=== PATIENT | female | born 1945 | race Caucasian/White ===

== ENCOUNTER → 2018-03-26 12:45 | Outpatient (BNVA) | payer OTHER, SELFPAY | PROVIDERS: PCP Family Medicine; Visit Provider Nurse Practitioner Gerontology | DX: R32 Unspecified urinary incontinence (principal); E11.8 Type 2 diabetes mellitus with unspecified complications; I10 Essential (primary) hypertension | CPT/HCPCS: 81003; 99204; 99215 ==

== ENCOUNTER 2018-05-13 11:59 | Outpatient (REF) | payer OTHER, SELFPAY | END 2018-05-13 12:19 | LOC: LBN 11:59 | PROVIDERS: PCP Family Medicine; Visit Provider Family Medicine | DX: N39.0 Urinary tract infection, site not specified (principal) | CPT/HCPCS: 87086 ==

== ENCOUNTER 2018-05-20 22:35 | Emergency (ER) | payer OTHER, SELFPAY ==
[2018-05-20 22:45] VITALS: BP 173/93; PULSE 114; RESP 18; TEMP 37.1; O2SAT 96
--- NOTE | 2018-05-20 22:46 | ED.GENADUL_ITS ---
Discharge Plan Disposition Patient Disposition: HOME Condition: Good Discharge Details Chief Complaint: Urinary Clinical Impression: Acute UTI Reason For Visit: fernando Primary Care Provider: Domenico Paulson ED Provider: Fly Reyna Home Meds and New Rx's Prescriptions: New ciprofloxacin HCl [Cipro] 250 mg tablet 250 mg PO BID 10 Days Qty: 20 RF: 0 No Action rosuvastatin 40 mg tablet 40 mg PO DAILY RF: 0 tramadol 50 mg tablet 50 mg PO HS MDD 50 mg Qty: 28 RF: 0 ciprofloxacin HCl 250 mg tablet 250 mg PO BID Qty: 6 RF: 0 clopidogrel [Plavix] 75 MG tablet 75 mg PO DAILY RF: 0 glimepiride 4 MG tablet 4 mg PO DAILY RF: 0 blood-glucose meter [FreeStyle Lite Meter] 1 EACH kit 1 ea Miscellaneous DAILY Qty: 1 RF: 0 lancets [OneTouch UltraSoft Lancets] 1 EACH misc 1 ea Miscellaneous As directed Qty: 100 RF: 3 ONETOUCH ULTRA TEST STRIPS 1 EACH strip 1 ea Miscellaneous As directed Qty: 100 RF: 3 blood-glucose meter [OneTouch Ultra2] 1 EACH kit 1 ea Miscellaneous DAILY Qty: 1 RF: 0 pioglitazone 15 mg tablet 15 mg PO DAILY Qty: 90 RF: 3 Discharge Instructions Instructions: Urinary Tract Infection in Women (ED) Additional Instructions: Please take antibiotics as directed. If you notice any pain in your joints or tendons more so than normal please stop taking the antibiotics and did not perform any significant vigorous activity. Please follow-up with your urologist as soon as possible for evaluation of your chronic incontinence. if you notice any worsening of your symptoms, or any new symptoms such as vomiting, diarrhea, fever, chills, shortness of breath, chest pain, numbness, weakness, or fainting , please return immediately to the emergency department for reevaluation. Please follow up with your primary care provider as soon as possible for reassessment and reevaluation. As always, it was a pleasure participating in your medical care today. Referrals: Domenico Paulson DO [Primary Care Provider] - Discharge Data Discharge Date/Time-TO BE ENTERED AT DEPARTURE: 05/20/18 23:54 Medical Decision Making This is a very pleasant 73-year-old female who presents for evaluation of urinary tract infection symptoms. Patient states that she recently was diagnosed and treated for urinary tract infection, she took Cipro 250 mg twice d aily for 3 days. This significantly improved her symptoms however she was only symptom-free to 1-2 days after completion of the antibiotic. Over the last 24- 48 hours the patient has noticed a return of her urinary frequency, dysuria and pressure. She denies any abdominal pain, flank pain, fever or chills. She denies any vomiting or diarrhea. She states that her symptoms are consistent with her previous urinary tract infections. Physical exam is reassuring with no flank or CVA tenderness, no abdominal tenderness. We will evaluate for potential UTI, get the patient first dose of antibiotic here, I do feel that she would benefit from a repeat course of antibiotics. This is the antibiotic that the patient had been doing well with and she is tolerated this well I feel that this is very reasonable to continue however I do not think that the initial 3 days of antibiotics is appropriate due to her other risk factors of urinary incontinence, diabetes, and age. I feel that she would benefit from a prolonged course of symptoms 10 days of antibiotics for UTI. Patient did have mild tachycardia when she initially arrived with a heart rate of 114. We did get basic laboratory workup and rehydrate, and with this her heart rate came down to the 80s prior to discharge. Her laboratory workup demonstrated no white count, bandemia or left shift. Renal function is normal. With reassuring vital signs, a benign laboratory workup aside for a urinalysis indicative of a urinary tract infection I feel that she is safe for discharge home with close follow-up with her PCP. She demonstrates no signs or symptoms clinically consistent with pyelonephritis or an acute abdominal pathology at this time. Patient will be discharged home with Cipro, close follow-up instructions. I have extensively reviewed the treatment plan and discharge instructions with the patient and their family. I have addressed all patient concerns at this time. The patient and family was made aware of what symptoms to monitor for that would warrant a return to the emergency department. Discussed the plan with the patient and family, they demonstrate verbal understanding and agreement with our assessment and plan at this time. HPI General Date/Time Provider Initiated Documentation: 05/20/18 22:41 . HPI Narrative: This is a pleasant 73-year-old female with a past medical history of a CVA, traumatic brain injury, chronic urinary incontinence, type 2 diabetes, who presents today for evaluation of dysuria and increase in urinary frequency. Patient has a history of urinary tract infections. She was recently seen by her primary care provider on 05/13/18, where she had mild leukocyte esterase on her urinalysis. She was given 3 days of Cipro to 250 mg twice daily. Cultures showed gram-negative E. coli and other mixed pb, no sensitivities. The patient completed her 3-day course and felt slightly better afterwards, however over the last 1-2 days she had a notable return of her symptoms with frequency and burning and dysuria. She denies any flank pain, or systemic symptoms of fevers, chills, abdominal pain, vomiting or diarrhea. She states that her symptoms feel consistent with her previous UTIs. She denies any history of recent kidney stones. She does have follow-up with urology for her incontinence in the upcoming weeks. Patient denies any recent surgeries. She denies any IV or illicit drug use. She denies any pertinent family history Related Data Home Medications Medication Instructions Recorded Confirmed clopidogrel [Plavix] 75 mg PO DAILY tab-cap 12/06/17 05/20/18 glimepiride 4 mg PO DAILY tab-cap 12/06/17 05/20/18 blood-glucose meter [Freestyle #1 kit 01/16/18 05/13/18 Lite Meter] lancets [Onetouch Lancets] #100 ea 01/16/18 05/13/18 blood-glucose meter [Onetouch #1 kit 01/17/18 05/13/18 Ultra2] rosuvastatin 40 mg tablet 40 mg PO DAILY 02/11/18 05/20/18 pioglitazone 15 mg tablet 15 mg PO DAILY #90 tab-cap 03/24/18 05/20/18 ciprofloxacin 250 mg tablet 250 mg PO BID #6 tab 05/13/18 05/13/18 tramadol 50 mg tablet 50 mg PO HS #28 tab MDD 50 mg 05/13/18 05/20/18 ciprofloxacin HCl [Cipro] 250 mg PO BID 10 Days #20 tab 05/20/18 Previous Rx's Medication Instructions Recorded blood-glucose meter [Freestyle #1 kit 01/16/18 Lite Meter] lancets [Onetouch Lancets] #100 ea 01/16/18 blood-glucose meter [Onetouch #1 kit 01/17/18 Ultra2] pioglitazone 15 mg tablet 15 mg PO DAILY #90 tab-cap 03/24/18 ciprofloxacin 250 mg tablet 250 mg PO BID #6 tab 05/13/18 tramadol 50 mg tablet 50 mg PO HS #28 tab MDD 50 mg 05/13/18 ciprofloxacin HCl [Cipro] 250 mg PO BID 10 Days #20 tab 05/20/18 Allergies Allergy/AdvReac Type Severity Reaction Status Date / Time Penicillins Allergy Unknown unknown Verified 05/20/18 23:19 metformin AdvReac Unknown Gas Verified 05/20/18 23:19 sitagliptin phosphate AdvReac Unknown Knee Pain Unverified 05/20/18 23:19 [From Francois] Review of Systems Review of Systems All systems reviewed & are unremarkable except as noted in HPI and below PFSH Social History adopted: No housing: house current occupational status: retired Smoking/Tobacco Use Status: Current every day alcohol intake: former substance use type: does not use seatbelt use: always drive intox or ride w/ intox driver operator: No working smoke detector in home: Yes fire extinguisher in home: Yes carbon monox detector in home: No Exam Narrative Exam Narrative: 1.Const: Well-nourished, Well-developed, appearing stated age 2.Eyes: PERRL, no conjunctival injection, and symmetrical lids. 3.ENT: Atraumatic external nose and ears. Moist MM. Neck: Symmetric, trachea midline, No thyromegaly. 4.CVS: +S1/S2, No murmurs or gallops. Peripheral pulses 2+ and equal in all extremities. Brisk capillary refill in all extremities. 5.RESP: Unlabored respiratory effort. Clear to auscultation bilaterally. No wheezes rales or rhonchi 6.GI: Soft, Nontender/Nondistended, No hepatosplenomegaly. No guarding or rebound. No flank or CVA tenderness. 7.MSK: Normocephalic/Atraumatic, Extremities w/o deformity or ttp No cyanosis or clubbing, Normal movement of all extremities 8.Skin: Warm, Dry. No rashes or lesions. 9.Neuro: ophthalmology assistant II-XII grossly intact. Sensation grossly intact, no focal neurologic deficits. 10.Psych: (AAO) x3. Appropriate mood and affect
[2018-05-20 22:55] LABS: Bilirubin Negative (Negative); Blood Trace-intact (Negative); Clarity Sl Cloudy; Glucose Negative (Negative); Ketones Negative (Negative); Leukocyte Esterase Moderate (Negative); Nitrite Negative (Negative); Specific Gravity >= 1.030 (1.005-1.025); Urobilinogen 0.2 EU/dL (Up TO 0.2); pH 5.5 (5-8)
[2018-05-20 23:04] LABS: Bacteria Moderate HPF (Negative); C & S Indicated? No/Sq. Contamination; Casts Negative LPF (Negative); Crystals Negative HPF (Negative); Epithelial Cells Moderate HPF (Negative); Mucus Moderate (Negative); Other Cells Few Transitional (Negative); WBC 20-50 HPF (0-5)
[2018-05-20 23:17] LABS: Abs Immature Grans 0.01 k/cumm (0.0-0.09); Absolute Basophil Count 0.04 k/cumm (0.0-0.2); Absolute Eosinophil Count 0.23 k/cumm (0.0-0.7); Absolute Lymphocyte Count 2.39 k/cumm (1.2-3.4); Absolute Neutrophil Count 3.94 k/cumm (1.2-6.7); Basophils % 0.5; Eosinophils % 3.1; HCT 40.9 % (36.0-46.0); HGB 13.7 g/dL (12.0-15.5); Immature Grans % 0.1; Lymphocytes % 32.7; Mean Corp. HGB Concentration 33.5 g/dL (32.0-36.0); Mean Corpuscular Hemoglobin 29.9 pg (27.0-33.0); Mean Corpuscular Volume 89.3 fL (80-95); Mean Platelet Volume 9.1 fL (8.0-11.0); Monocytes % 9.6; Platelet Count 255 x1000/uL (130-400); RBC 4.58 m/cumm (4.00-5.20); RBC Distribution Width 14.5 % (11.7-14.6); White Blood Cell Count 7.31 k/cumm (4.4-10.8)
[2018-05-20] MEDS: Normal Saline 1,000 ML 1000 ML IV (23:21)
[2018-05-20] MEDS: Ciprofloxacin 250 MG TAB PO ×2 (23:21→23:22)
[2018-05-20] MEDS: Phenazopyridine 100 MG TAB PO (23:22)
[2018-05-20 23:33] LABS: ALT 21 U/L (12-78); AST 15 U/L (15-37); Albumin 3.7 g/dL (3.4-5.0); Alkaline Phosphatase 89 U/L (46-116); Anion Gap 5.2 mmol/L (3-11); BUN 14 mg/dL (7-18); Bilirubin, Total 0.3 mg/dL (0.2-1.0); CO2 28.8 mmol/L (21.0-32.0); CREATININE 0.71 mg/dL (0.55-1.02); Calcium 9.6 mg/dL (8.5-10.1); Chloride 106 mmol/L (98-107); Glucose 155 mg/dL (70-100); Potassium 3.9 mmol/L (3.5-5.1); Sodium 140 mmol/L (136-145); Total Protein 7.1 g/dL (6.4-8.2)
[2018-05-20 23:45] VITALS: BP 180/88; PULSE 100; RESP 19; TEMP 37.1; O2SAT 99
== END 2018-05-20 23:54 | disposition home or self-care (01) ==
PROVIDERS: Emergency Provider Student in an Organized Health Care Education/Training Program; PCP Family Medicine
DX: N39.0 Urinary tract infection, site not specified (principal); E11.9 Type 2 diabetes mellitus without complications
CPT/HCPCS: 80053; 99283; 81003; 81015; 85025

== ENCOUNTER → 2018-07-18 12:50 | Outpatient (BNVA) | payer OTHER, SELFPAY | PROVIDERS: PCP Family Medicine; Visit Provider Urology | DX: R32 Unspecified urinary incontinence (principal) | CPT/HCPCS: 81003; 99213 ==

== ENCOUNTER 2018-10-14 12:08 | Outpatient (REF) | payer OTHER, SELFPAY | END 2018-10-14 12:28 | LOC: LBN 12:08 | PROVIDERS: PCP Family Medicine; Visit Provider Family Medicine | DX: N39.0 Urinary tract infection, site not specified (principal) | CPT/HCPCS: 87077; 87086; 87186 ==

== ENCOUNTER 2018-11-06 12:19 | Outpatient (CLI) | payer OTHER, SELFPAY ==
[2018-11-06 13:42] LABS: ALT 22 U/L (12-78); AST 16 U/L (15-37); Albumin 3.9 g/dL (3.4-5.0); Alkaline Phosphatase 90 U/L (46-116); Bilirubin, Direct 0.14 mg/dL (0.00-0.20); Bilirubin, Total 0.4 mg/dL (0.2-1.0); C-Reactive Protein 0.15 mg/dL (0.0-0.3); Lipase 143 U/L (73-393); Total Protein 6.6 g/dL (6.4-8.2)
[2018-11-07 09:48] LABS: Cyclic Citrullinated Peptide <2.5 U/mL (<5.0)
[2018-11-07 09:55] LABS: Rheumatoid Factor <8 IU/mL (<12.5)
[2018-11-07 12:14] LABS: Lyme Ab w Rflx to Lyme Confirm Negative
[2018-11-07 13:53] LABS: ANA Interpretation Negative (NEGAT)
[2018-11-07 21:49] LABS: Anaplasma phagocytophilum Negative (Negative); B. miyamotoi PCR Negative (Negative); Babesia divergens/MO-1 Negative (Negative); Babesia duncani Negative (Negative); Babesia microti Negative (Negative); Ehrlichia chaffeensis Negative (Negative); Ehrlichia ewingii/canis Negative (Negative); Ehrlichia muris eauclairensis Negative (Negative)
== END 2018-11-06 12:39 ==
PROVIDERS: PCP Family Medicine; Visit Provider Family Medicine
DX: M13.0 Polyarthritis, unspecified (principal); K21.0 Gastro-esophageal reflux disease with esophagitis
CPT/HCPCS: 36415; 80076; 83690; 86200; 86038; 86140; 86431; 86618; 87798

== ENCOUNTER 2018-11-17 18:50 | Outpatient (REF) | payer OTHER, SELFPAY | END 2018-11-17 19:10 | LOC: LBN 18:50 | PROVIDERS: PCP Family Medicine; Visit Provider Nurse Practitioner | DX: R30.0 Dysuria (principal) | CPT/HCPCS: 87077; 87086; 87186 ==

== ENCOUNTER 2018-12-09 11:38 | Outpatient (REF) | payer OTHER, SELFPAY | END 2018-12-09 11:58 | LOC: LBN 11:38 | PROVIDERS: PCP Family Medicine; Visit Provider Family Medicine | DX: N39.0 Urinary tract infection, site not specified (principal) | CPT/HCPCS: 87077; 87086; 87186 ==

== ENCOUNTER → 2019-01-16 10:16 | Outpatient (BNVA) | payer OTHER, SELFPAY | PROVIDERS: PCP Family Medicine; Visit Provider Urology | DX: R32 Unspecified urinary incontinence (principal); Z87.440 Personal history of urinary (tract) infections | CPT/HCPCS: 99213 ==

== ENCOUNTER 2019-02-18 01:05 | Outpatient (CLI) | payer OTHER, SELFPAY ==
--- NOTE | 2019-02-18 10:14 | DI.US_ITS ---
EXAM: US RENAL CLINICAL HISTORY: ? stone, diverticulum, hydro, N39.0 UTI. TECHNIQUE: Ultrasound performed using standard protocol. FINDINGS: The right kidney measures 10.9 x 3.6 x 5.4 cm. There is no evidence of nephrolithiasis, a cyst, mass or hydronephrosis. The left kidney measures 10.1 x 4.2 x 4.3 cm. There is no evidence of nephrolithi asis, a cyst, mass or hydronephrosis. The prevoid bladder contains 41 cc, the postvoid bladder conta ins 0. Both ureteral jets were visualized. IMPRESSION: Normal renal ultrasound.
== END 2019-02-18 01:25 ==
PROVIDERS: PCP Family Medicine; Visit Provider Urology
DX: N39.0 Urinary tract infection, site not specified (principal)
CPT/HCPCS: 76770

== ENCOUNTER → 2019-02-20 13:58 | Outpatient (BNVA) | payer OTHER, SELFPAY | PROVIDERS: PCP Family Medicine; Referring Provider Family Medicine; Visit Provider Urology | DX: R32 Unspecified urinary incontinence (principal) | CPT/HCPCS: 99213 ==

== ENCOUNTER 2019-03-24 16:52 | Outpatient (CLI) | payer OTHER, SELFPAY ==
--- NOTE | 2019-03-24 11:03 | DI.RAD_ITS ---
EXAM: XR CHEST 2V PA LATERAL INDICATION: Productive cough, possible crackles on exam, R05. COMPARISON: No exams were available for comparison TECHNIQUE: 2D digital imaging was performed. FINDINGS: The heart size and pulmonary vasculature are within normal limits. The lungs are clear. No effusion o r pneumothorax is identified. Age-appropriate degenerative changes are seen in the spine. IMPRESSION: No acute pulmonary process.
== END 2019-03-24 17:12 ==
PROVIDERS: PCP Family Medicine; Visit Provider Family Medicine
DX: R05 Cough (principal); R09.89 Other specified symptoms and signs involving the circulatory and respiratory systems
CPT/HCPCS: 71046

== ENCOUNTER → 2019-04-14 14:11 | Outpatient (BNVA) | payer OTHER, SELFPAY | PROVIDERS: PCP Family Medicine; Referring Provider Family Medicine; Visit Provider Urology | DX: N32.81 Overactive bladder (principal) | CPT/HCPCS: 99213 ==

== ENCOUNTER 2019-10-29 15:44 | Outpatient (REF) | payer OTHER, SELFPAY ==
[2019-10-29 18:47] LABS: Abs Immature Grans 0.01 k/cumm (0.0-0.09); Absolute Basophil Count 0.02 k/cumm (0.0-0.2); Absolute Eosinophil Count 0.12 k/cumm (0.0-0.7); Absolute Lymphocyte Count 1.82 k/cumm (1.2-3.4); Absolute Monocyte Count 0.69 k/cumm (0.11-0.7); Absolute Neutrophil Count 5.03 k/cumm (1.2-6.7); Basophils % 0.3; Eosinophils % 1.6; HCT 41.3 % (36.0-46.0); HGB 13.6 g/dL (12.0-15.5); Immature Grans % 0.1 %; Lymphocytes % 23.7; Mean Corp. HGB Concentration 32.9 g/dL (32.0-36.0); Mean Corpuscular Hemoglobin 30.2 pg (27.0-33.0); Mean Corpuscular Volume 91.6 fL (80-95); Mean Platelet Volume 9.5 fL (8.0-11.0); Neutrophils % 65.3; Platelet Count 267 x1000/uL (130-400); RBC 4.51 m/cumm (4.00-5.20); RBC Distribution Width 14.4 % (11.7-14.6); White Blood Cell Count 7.69 k/cumm (4.4-10.8)
[2019-10-29 19:01] LABS: Anion Gap 3.8 mmol/L (3-11); BUN 20 mg/dL (7-18); CO2 29.2 mmol/L (21.0-32.0); CREATININE 0.85 mg/dL (0.55-1.02); Calcium 9.8 mg/dL (8.5-10.1); Chloride 105 mmol/L (98-107); Glucose 128 mg/dL (74-106); Potassium 4.2 mmol/L (3.5-5.1); Sodium 138 mmol/L (136-145); TSH (W/Ref FT4) 0.54 uIU/mL (0.36-3.74)
== END 2019-10-29 16:04 ==
LOC: LBO 15:44
PROVIDERS: PCP Family Medicine; Visit Provider Family Medicine
DX: R53.83 Other fatigue (principal)
CPT/HCPCS: 80048; 84443; 85025

== ENCOUNTER 2020-03-02 00:55 | Outpatient (CLI) | payer OTHER, SELFPAY ==
--- NOTE | 2020-03-02 09:15 | DI.RAD_ITS ---
EXAM: XR LUMBAR SPINE COMPLETE CLINICAL HISTORY: New mid-low back pain, r/o compression frx M54.5 LOW BACK PAIN TECHNIQUE: COMPARISON: No exams were available for comparison FINDINGS: Six views were obtained. There is a slight left convex lumbar scoliosis. There are multiple vascula r clips in the right upper quadrant consistent with prior cholecystectomy. There are degenerative ch anges of both SI joints. No compression fracture identified. There are very prominent hypertrophic endplate and to a lesser d egree facet osteophytes throughout the lumbar region. There is no evidence of spondylolysis or spond ylolisthesis. There is marked disc space narrowing at L5-S1. This is presumably on a degenerative b asis. Otherwise intervertebral disc spaces appear fairly well maintained throughout the lumbar regio n. IMPRESSION: Severe hypertrophic degenerative changes, there is also evidence of disc degeneration at L5-S1. No compression fracture seen. RADIATION DOSE DELIVERED: Total DLP
== END 2020-03-02 01:15 ==
PROVIDERS: PCP Family Medicine; Visit Provider Family Medicine
DX: M47.817 Spondylosis without myelopathy or radiculopathy, lumbosacral region (principal); M41.86 Other forms of scoliosis, lumbar region
CPT/HCPCS: 72110

== ENCOUNTER 2020-09-07 02:40 | Outpatient (CLI) | payer OTHER, SELFPAY ==
[2020-09-07 09:30] VITALS: BP 118/66; PULSE 97; RESP 20; TEMP 36.3; O2SAT 93
[2020-09-07] MEDS: Normal Saline Flush 10 ML SYR IVP (10:33)
[2020-09-07] MEDS: Normal Saline 500 ML 30 ML IV (10:33)
[2020-09-07 10:37] VITALS: BP 121/62; PULSE 90; RESP 20; TEMP 36.7; O2SAT 94
[2020-09-07 10:58] VITALS: BP 154/69; PULSE 90; RESP 20; TEMP 36.2; O2SAT 94
[2020-09-07 11:31] VITALS: BP 147/71; PULSE 80; RESP 20; TEMP 36.4; O2SAT 92
[2020-09-07 11:55] VITALS: BP 166/70; PULSE 80; RESP 22; TEMP 36.8; O2SAT 92
== END 2020-09-07 02:41 | disposition home or self-care (01) ==
LOC: INF 02:40
PROVIDERS: PCP Family Medicine; Visit Provider Family Medicine
DX: U07.1 COVID-19 (principal)
CPT/HCPCS: 96365

== ENCOUNTER 2020-09-09 15:07 | Outpatient (CLI) | payer OTHER, SELFPAY ==
--- NOTE | 2020-09-09 14:45 | DI.RAD_ITS ---
EXAM: XR CHEST 2V PA LATERAL CLINICAL HISTORY: r/o acute process R05 COUGH, R06.02 SOB U07.1 COVID 19 TECHNIQUE: 2D digital imaging was performed. COMPARISON: CR XR CHEST 2V PA LATERAL from 03/24/2019 FINDINGS: MEDIASTINUM: Normal. HEART: Normal. PULMONARY VASCULATURE: Normal. LUNGS: Clear. PLEURAL SPACE: No pleural effusion or pneumothorax. BONE:Within normal limits for the patient's age. OTHER FINDINGS:Normal. IMPRESSION: No acute pulmonary findings. DATA REPOSITORY: RADIATION DOSE DELIVERED:
== END 2020-09-09 15:27 ==
PROVIDERS: PCP Family Medicine; Visit Provider Nurse Practitioner Adult Health
DX: R05 Cough (principal); R06.02 Shortness of breath; U07.1 COVID-19
CPT/HCPCS: 71046

== ENCOUNTER 2021-01-26 20:04 | Emergency (ER) | payer OTHER, SELFPAY ==
[2021-01-26 20:08] VITALS: BP 156/63; PULSE 90; RESP 18; TEMP 36.3; O2SAT 94
--- NOTE | 2021-01-26 20:20 | ED.GENADUL_ITS ---
Discharge Plan Disposition Patient Disposition: HOME Condition: Stable Discharge Details Clinical Impression: Paronychia of finger of right hand Primary Care Provider: Domenico Paulson ED Provider: Juliette Franklin Home Meds and New Rx's Prescriptions: New clindamycin HCl 150 mg capsule 450 mg PO Q6H 7 Days Qty: 84 RF: 0 Continued glimepiride 4 mg tablet 4 mg PO DAILY RF: 0 ascorbic acid (vitamin C) 500 mg capsule PO RF: 0 tramadol 50 mg tablet See Rx Instructions PO HS MDD 50 mg PRN (Reason: pain) Qty: 35 RF: 2 (DME) lancets [ViditTouch UltraSoft Lancets] 1 EACH misc 1 ea Miscellaneous As directed Qty: 100 RF: 3 ONETOUCH ULTRA TEST STRIPS 1 EACH strip 1 ea Miscellaneous As directed Qty: 100 RF: 3 (DME) blood-glucose meter [NearbyNowuch Ultra2 Meter] 1 EACH kit 1 ea Miscellaneous DAILY Qty: 1 RF: 0 clopidogrel [Plavix] 75 mg tablet 75 mg PO DAILY Qty: 90 RF: 3 pioglitazone 15 mg tablet 15 mg PO DAILY Qty: 90 RF: 3 rosuvastatin 40 mg tablet 40 mg PO DAILY Qty: 90 RF: 3 Discharge Instructions Instructions: Paronychia (ED) Additional Instructions: You may continue to apply antibiotic ointment topically up to 3 times daily. You may continue to soak in Epson salts. Take antibiotics as directed. Follow up with primary care provider in 3-5 days. Return to ED sooner if any w orsening or concerns. Increase oral fluids. Please take Tylenol or Ibuprofen with food every 4-6 hours as needed for pain and swelling. Referrals: Domenico Paulson DO [Primary Care Provider] - 3 days Discharge Data Discharge Date/Time-TO BE ENTERED AT DEPARTURE: 01/26/21 20:40 Medical Decision Making 75-year-old female presents to the ER chief complaint of right index finger infection. Patient noticed tenderness from a hangnail increase swelling and redness approximately 2 days ago. Patient reports she has been applying Neosporin topically and soaking finger and Epson salts. Patient states she has had this before and infection extended up into her forearm. Patient has a past medical history of type 2 diabetes, hypothyroidism, hyperlipidemia, hypertension, CVA. Findings are most consistent with paronychia. No area of fluctuance or drainable abscess at this time. Patient given clindamycin due to allergy to penicillin. HPI General Mode of arrival: ambulatory . Date/Time Provider Initiated Documentation: 01/26/21 20:05 . Limitations to Documentation: no limitations . Information obtained by: patient and RN notes reviewed . HPI Narrative: 75-year-old female presents to the ER chief complaint of right index finger infection. Patient noticed tenderness from a hangnail increase swelling and redness approximately 2 days ago. Patient reports she has been applying Neosporin topically and soaking finger and Epson salts. Patient states she has had this before and infection extended up into her forearm. Patient has a past medical history of type 2 diabetes, hypothyroidism, hyperlipidemia, hypertension, CVA. Related Data Home Medications Medication Instructions Recorded Confirmed lancets [OneTouch UltraSoft #100 ea 01/16/18 09/20/20 Lancets] blood-glucose meter [OneTouch #1 kit 01/17/18 09/20/20 Ultra2 Meter] ascorbic acid (vitamin C) 500 mg mg PO 02/24/19 09/20/20 capsule clopidogrel 75 mg tablet 75 mg PO DAILY #90 tab-cap 08/19/20 01/26/21 pioglitazone 15 mg tablet 15 mg PO DAILY #90 tab-cap 08/19/20 01/26/21 rosuvastatin 40 mg tablet 40 mg PO DAILY #90 tab 08/19/20 01/26/21 glimepiride 4 mg tablet 4 mg PO DAILY tab-cap 09/20/20 01/26/21 tramadol 50 mg tablet See Rx Instructions PO HS PRN #35 11/25/20 01/26/21 tab MDD 50 mg clindamycin HCl 450 mg PO Q6H 7 Days #84 cap 01/26/21 Previous Rx's Medication Instructions Recorded lancets [OneTouch UltraSoft #100 ea 01/16/18 Lancets] blood-glucose meter [OneTouch #1 kit 01/17/18 Ultra2 Meter] clopidogrel 75 mg tablet 75 mg PO DAILY #90 tab-cap 08/19/20 pioglitazone 15 mg tablet 15 mg PO DAILY #90 tab-cap 08/19/20 rosuvastatin 40 mg tablet 40 mg PO DAILY #90 tab 08/19/20 tramadol 50 mg tablet See Rx Instructions PO HS PRN #35 11/25/20 tab MDD 50 mg clindamycin HCl 450 mg PO Q6H 7 Days #84 cap 01/26/21 Allergies Allergy/AdvReac Type Severity Reaction Status Date / Time Penicillins Allergy Unknown unknown Verified 01/26/21 20:14 metformin AdvReac Unknown Gas Verified 01/26/21 20:14 sitagliptin phosphate AdvReac Unknown Knee Pain Verified 01/26/21 20:14 [From Francois] General Stated Complaint: RashLesion GRAY: 4 Review of Systems All systems reviewed & are unremarkable except as noted in HPI and below Musculoskeletal Musculoskeletal: Reports as per HPI Integumentary/Breasts Skin/Breast: Reports erythema (Right index finger) [facility] Medical History 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) Cerebrovascular accident (CVA) (11/22/17) 2010 Dysphagia (11/22/17) Eczema (11/22/17) Enlarged lymph node (11/22/17) Essential hypertension (11/22/17) Fatigue (11/22/17) Gait disturbance (11/22/17) Generalized osteoarthritis of multiple sites (11/22/17) Hyperlipidemia (11/22/17) Hypothyroidism (11/22/17) Insomnia (11/22/17) Low back pain Lumbar radiculopathy (11/22/17) Periodic limb movement disorder (11/22/17) Psychomotor deficit (11/22/17) Recurrent UTI (urinary tract infection) Retinal detachment (11/22/17) Retinal edema (11/22/17) Right knee pain (11/22/17) Stenosis of carotid artery (11/22/17) Syncope (11/22/17) Type 2 diabetes mellitus with complication (11/22/17) Urinary incontinence (11/22/17) Vaginal candidiasis (11/22/17) Seen by [facility] in February -- unclear findings .. will FU with them - PT/Pessary TBD Pain and itching are major symptoms -- more of a fungal/yeast infectn than UTI - Trial anti-yeast oitnment - Trial Zinc paste Surgical History Abdominal hysterectomy Arthrodesis Cholecystectomy Family History Mother , thyrpoid ca at age 92. Osteoporosis Father , CHF at age 89. Congestive heart failure Brother Pacemaker Maternal Grandmother Essential hypertension Social History Smoking/Tobacco Use Status: Current-Occasional Tobacco Type: cigarettes Quit status: considering quitting Smoking risk assessment performed?: Yes Alcohol Intake: former Drug use: Never Substance use type: does not use Adopted: No Household members: family Housing: house Number of Children: 3 Communication Needs: None Do you need help understanding health information?: Rarely Pets and animals: Yes Pets and animals: dog(s) Sexually active: No Current gender identity: female What is your relationship status?: How often do you talk on the phone with friends or family?: twice per week How often do you get together with friends or relatives?: decline to answer How often do you attend hindu or adventism services?: decline to answer Do you belong to any clubs or organized social groups?: decline to answer Panel score (0-1 are the most socially isolated patients): 0 Duration: < 15 minutes/day Frequency: 3-4 times per week Samantha/Episcopalian: Other Special samantha needs: Yes Seatbelt use: always Helmet use: No Drive intox or ride w/intox chair car driver: No Working smoke detector in home: Yes Fire extinguisher in home: Yes Carbon monox detector in home: No Do you feel safe at home: Yes Do you feel safe in your relationship?: Yes Exam Extrem Right upper extremity: hand Details: normal capillary refill, neurosensory exam normal, tenderness Location: of the 2nd digit Location: at the distal phalanx, warmth and swelling Hand/finger images: 1. Erythema, tenderness, swelling. No area of fluctuance or abscess noted. Course Vital Signs Vital signs: Vital Signs Temperature 36.3 C L 01/26/21 20:08 Pulse 90 01/26/21 20:08 Respiratory Rate 18 01/26/21 20:08 Blood Pressure 156/63 H 01/26/21 20:08 Pulse Oximetry 94 01/26/21 20:08 Temperature 36.3 C L 01/26/21 20:08 Temperature Source Temporal Artery Scan 01/26/21 20:08 Pulse 90 01/26/21 20:08 Respiratory Rate 18 01/26/21 20:08 Respiratory Effort Non-Labored 01/26/21 20:13 Blood Pressure 156/63 H 01/26/21 20:08 Blood Pressure Position Sitting 01/26/21 20:08 Pulse Oximetry 94 01/26/21 20:08 Oxygen Delivery Method Room Air 01/26/21 20:08 Oxygen Flow Rate 0 01/26/21 20:08 Pain Level 7 01/26/21 20:08
[2021-01-26] MEDS: Clindamycin 150 MG CAP, 12 CAPS/BTL 450 MG PO (20:27)
[2021-01-26] MEDS: Clindamycin 150 MG CAP 450 MG PO (20:27)
== END 2021-01-26 20:40 | disposition home or self-care (01) ==
PROVIDERS: Emergency Provider Registered Nurse Emergency; PCP Family Medicine
DX: L03.011 Cellulitis of right finger (principal); E11.9 Type 2 diabetes mellitus without complications; Z79.84 Long term (current) use of oral hypoglycemic drugs
CPT/HCPCS: 99283

== ENCOUNTER 2022-01-30 15:05 | Outpatient (REF) | payer MEDICARE, SELFPAY ==
[2022-02-01 12:01] LABS: COVID-19 RT-PCR UVMMC Result Negative (Negative)
== END 2022-01-30 15:06 | disposition home or self-care (01) ==
LOC: LBN 15:05
PROVIDERS: PCP Family Medicine; Visit Provider Nurse Practitioner
DX: Z20.822 Contact with and (suspected) exposure to COVID-19 (principal)
CPT/HCPCS: U0003

== ENCOUNTER 2022-01-31 09:46 | Emergency (ER) | payer MEDICARE, SELFPAY ==
[2022-01-31 09:56] VITALS: BP 152/94; PULSE 81; TEMP 36.7; O2SAT 94
--- NOTE | 2022-01-31 10:00 | DI.RAD_ITS ---
Exam(s) XR PORTABLE CHEST AP EXAM: XR PORTABLE CHEST AP CLINICAL HISTORY: cough TECHNIQUE: 2D digital imaging was performed of the chest. One image was obtained. An AP view was ob tained. COMPARISON: CR XR CHEST 2V PA LATERAL from 09/09/2020 FINDINGS: Examination limited by patient positioning. MEDIASTINUM: Normal. HEART: Normal. PULMONARY VASCULATURE: Normal. LUNGS: Clear. PLEURAL SPACE: No pleural effusion or pneumothorax. BONE:Within normal limits for the patient's age. OTHER FINDINGS:Normal. IMPRESSION: No acute pulmonary findings. DATA REPOSITORY: RADIATION DOSE DELIVERED:
[2022-01-31 10:31] LABS: Source Nasopharynx
[2022-01-31 10:34] LABS: Abs Immature Grans 0.02 10^3/uL (0.0-0.06); Absolute Basophil Count 0.04 10^3/uL (0.0-0.2); Absolute Eosinophil Count 0.31 10^3/uL (0.0-0.7); Absolute Lymphocyte Count 1.17 10^3/uL (1.2-3.4); Absolute Monocyte Count 0.69 10^3/uL (0.1-0.8); Absolute Neutrophil Count 3.74 10^3/uL (1.2-6.7); Basophils % 0.7; Eosinophils % 5.2; HCT 43.1 % (36.0-46.0); HGB 13.9 g/dL (11.2-15.7); Immature Grans % 0.3; Lymphocytes % 19.6; MCH 29.1 pg (27.0-33.0); MCHC 32.3 % (32.0-36.0); MCV 90 fL (80-95); MPV 9.3 fL (8.0-11.0); Monocytes % 11.6; Neutrophils % 62.6; Platelet Count 238 10^3/uL (130-400); RBC 4.78 10^6/uL (3.93-5.22); RDW 13.4 % (11.7-14.6); RDW-SD 44.8 fL; WBC 5.97 10^3/uL (4.4-10.8)
[2022-01-31 10:50] LABS: ALT 20 U/L (14-59); AST 9 U/L (15-37); Albumin 3.7 g/dL (3.4-5.0); Alkaline Phosphatase 126 U/L (46-116); Anion Gap 3.9 mmol/L (3-11); BUN 18 mg/dL (7-18); Bilirubin, Total 0.3 mg/dL (0.2-1.0); CO2 32.1 mmol/L (21.0-32.0); Calcium 9.7 mg/dL (8.5-10.1); Chloride 103 mmol/L (98-107); Estimated GFR 57.66 (mL/min/1.73m2); Glucose 394 mg/dL (74-106); Potassium 4.1 mmol/L (3.5-5.1); Sodium 139 mmol/L (136-145); Total Protein 7.3 g/dL (6.4-8.2)
[2022-01-31 11:21] LABS: COVID-19 PCR Negative (Negative)
--- NOTE | 2022-01-31 11:22 | ED.GENADUL_ITS ---
Discharge Plan Disposition Patient Disposition: HOME Condition: Stable Discharge Details Clinical Impression: Cough, Hyperglycemia Primary Care Provider: Domenico Paulson ED Provider: Charlie Scott Home Meds and New Rx's Prescriptions: New doxycycline monohydrate 100 mg capsule 100 mg PO BID Qty: 20 0RF Continued ascorbic acid (vitamin C) 500 mg capsule PO (DME) blood sugar diagnostic Strip See Rx Instructions .Route Qty: 100 3RF Rx Instructions: to test blood sugars daily Dx: E11.40 glimepiride 4 mg tablet 6 mg PO DAILY Qty: 90 3RF Shingrix (PF) 50 mcg/0.5 mL suspension for reconstitution 50 mcg IM ONCE Qty: 1 1RF gabapentin 100 mg capsule 100 mg PO TID Qty: 90 0RF cyclobenzaprine 5 mg tablet 5 mg PO TID PRN (Reason: muscle spasm) Qty: 30 0RF (DME) walker Misc See Rx Instructions .Route Qty: 1 0RF Rx Instructions: As directed ONETOUCH ULTRA TEST STRIPS 1 EACH strip 1 ea Miscellaneous As directed Qty: 100 3RF Rx Instructions: For DM E11.9 to maintain A1C<7.5 (DME) blood-glucose meter [[employer] Ultra2 Meter] 1 EACH kit 1 ea Miscellaneous DAILY Qty: 1 0RF Rx Instructions: DISPENSE WHATEVER METER INSURANCE WILL COVER DX: E11.9. TO TEST BS'S TO KEEP A1C BELOW 7.5% clopidogrel [Plavix] 75 mg tablet 75 mg PO DAILY Qty: 90 3RF pioglitazone 15 mg tablet 15 mg PO DAILY Qty: 90 3RF rosuvastatin 40 mg tablet 40 mg PO DAILY Qty: 90 3RF (DME) lancets [Universal BiosensorsTouch UltraSoft Lancets] Misc 1 ea Miscellaneous As directed Qty: 100 3RF Rx Instructions: Delica Lancets please For D< E11.9 to maintain A1C<7.5. Check blood sugar QD as directed tramadol 50 mg tablet See Rx Instructions PO HS MDD 75 mg PRN (Reason: pain) Qty: 35 2RF Dose Instruction: Take one half tablet in the morning and a full tablet at night PO HS; Rx Instructions: T0.5 tabs qam prn, T1tab qhs hydrocodone-acetaminophen 5-325 mg tablet 1 tab PO Q8H MDD 3 tabs PRN (Reason: pain) Qty: 9 0RF Discontinued doxycycline monohydrate 100 mg capsule 100 mg PO BID Qty: 20 0RF Discharge Instructions Instructions: Diabetic Hyperglycemia (ED), Acute Cough (ED) Additional Instructions: Your work-up today reveals that your glucose is elevated but this is no surprise as you had not taken your daily medications. Daily medications given here in the ER. Work-up otherwise unremarkable, COVID test is negative, chest x-ray is clear. I have changed the pharmacy of your doxycycline prescription to [facility] at your request as written yesterday by your primary care provider. You may also take [id number] medications for symptomatic control. Please watch for new or worsening symptoms and return to the ER for any concerns. Lastly, please contact your primary care provider tomorrow to discuss your ER visit need for outpatient reevaluation Medical Decision Making 76-year-old female, current smoker, past medical history of diabetes, hyperten luca, chronic pain, on Plavix, presenting to the ER for a 4-day history of not feeling well, fatigue, cough, runny nose. Seen at her PCP office yesterday, COVID swab obtained but not resulted, placed on doxycycline. Patient reports that her pharmacy was closed and she was unable to get the prescription filled, need for prescription transferred to another pharmacy. She denies any documented fever, chest pain, shortness of breath, abdominal pain. Reports mild nausea and did vomit once yesterday. Clinically she appears well, nontoxic, pulse in the 80s, respirations 20, afebrile, O2 sat 94% on room air. Given her age and multiple comorbidities, will obtain IV access, obtain routine screening laboratory values, give IV fluid, and obtain both a chest x-ray and COVID swab Laboratory values reveal no evidence of leukocytosis or anemia. Electrolytes reveal a sodium of 139 potassium 4.1 creatinine is 1.0 with a GFR of 57.66. Glucose elevated at 394 no elevated anion gap. Patient receiving 1 L IV fluid and will provide her both her oral agents now that she did not take this morning. COVID negative Chest x-ray negative Discussed results with patient and family. She remains well, nontoxic. Will transfer the prescription of her doxycycline to [facility] that was provided yesterday by her PCP. We did discuss her hyperglycemia and the importance of taking her medications as directed as well as monitoring her glucose levels more carefully Standard discharge and return precautions were provided. Patient understands, is agreeable to this plan, and has no additional questions or concerns upon discharge. This documentation was generated using [employer] system, please disregard any oddities of phrase or misspellings. Medical Records Medical records reviewed: Yes I reviewed the patient's medical records. Imaging Data Radiologic Study: Attestation: I personally reviewed and interpreted this imaging study as follows: Imaging: X-Ray Radiologist's impression: Exam(s) XR PORTABLE CHEST AP EXAM: XR PORTABLE CHEST AP CLINICAL HISTORY: cough TECHNIQUE: 2D digital imaging was performed of the chest. One image was obtained. An AP view was obtained. COMPARISON: CR XR CHEST 2V PA LATERAL from 09/09/2020 FINDINGS: Examination limited by patient positioning. MEDIASTINUM: Normal. HEART: Normal. PULMONARY VASCULATURE: Normal. LUNGS: Clear. PLEURAL SPACE: No pleural effusion or pneumothorax. BONE:Within normal limits for the patient's age. OTHER FINDINGS:Normal. IMPRESSION: No acute pulmonary findings. Lab Data Lab results reviewed: Yes I reviewed the patient's lab results. Labs: Laboratory Tests Range/Units 01/31/22 01/31/22 01/31/22 10:24 10:24 10:24 WBC (4.4-10.8) 10^3/uL 5.97 RBC (3.93-5.22) 10^6/uL 4.78 Hgb (11.2-15.7) g/dL 13.9 Hct (36.0-46.0) % 43.1 MCV (80-95) fL 90 MCH (27.0-33.0) pg 29.1 MCHC (32.0-36.0) % 32.3 RDW (11.7-14.6) % 13.4 Plt Count (130-400) 10^3/uL 238 MPV (8.0-11.0) fL 9.3 Immature Gran % 0.3 Neutrophils % 62.6 Lymphocytes % 19.6 Monocytes % 11.6 Eosinophils % 5.2 Basophils % 0.7 Nucleated RBC % (0.0-0.3) % 0.0 Absolute Neutrophils (1.2-6.7) 10^3/uL 3.74 Absolute Lymphocytes (1.2-3.4) 10^3/uL 1.17 L Absolute Monocytes (0.1-0.8) 10^3/uL 0.69 Absolute Eosinophils (0.0-0.7) 10^3/uL 0.31 Absolute Basophils (0.0-0.2) 10^3/uL 0.04 Sodium (136-145) mmol/L 139 Potassium (3.5-5.1) mmol/L 4.1 Chloride (98-107) mmol/L 103 Carbon Dioxide (21.0-32.0) mmol/L 32.1 H Anion Gap (3-11) mmol/L 3.9 BUN (7-18) mg/dL 18 Creatinine (0.55-1.02) mg/dL 1.0 Est GFR (CKD-EPI 2020) (mL/min/1.73m2) 57.66 Glucose (74-106) mg/dL 394 H Calcium (8.5-10.1) mg/dL 9.7 Total Bilirubin (0.2-1.0) mg/dL 0.3 AST (15-37) U/L 9 L ALT (14-59) U/L 20 Alkaline Phosphatase (46-116) U/L 126 H Total Protein (6.4-8.2) g/dL 7.3 Albumin (3.4-5.0) g/dL 3.7 COVID-19 Source Nasopharynx SARS-CoV-2 (PCR) (Negative) Negative HPI General Mode of arrival: ambulatory . Date/Time Provider Initiated Documentation: 01/31/22 10:04 . Limitations to Documentation: no limitations . Information obtained by: patient and family . History of Present Illness 76 year old F presents to the emergency department with the chief complaint of cough, described as mild, with intensity rated at 3. Quality is described as other (Fatigue, no pain), and is localized to the chest (Cough). Patient reports no radiation. Patient started experiencing this day(s) (4) and it has been constant. No relieving factors improve symptom(s), No exacerbating factors reported . Patient notes fever/chills (Subjective fever), nausea/vomiting and weakness (Generalized); denies chest pain. Patient did receive the following treatments prior to arrival, none Related Data Home Medications Medication Instructions Recorded Confirmed blood-glucose meter ([employer] ##1 01/17/18 01/31/22 Ultra2 Meter kit) ascorbic acid (vitamin C) 500 mg mg PO 02/24/19 07/17/21 capsule clopidogrel 75 mg tablet (Plavix) 75 mg PO DAILY #90 tab-caps 06/29/21 01/31/22 pioglitazone 15 mg tablet 15 mg PO DAILY #90 tab-caps 07/10/21 01/31/22 rosuvastatin 40 mg tablet 40 mg PO DAILY #90 tabs 07/10/21 01/31/22 blood sugar diagnostic #100 ea 07/17/21 01/31/22 glimepiride 4 mg tablet 6 mg PO DAILY #90 tab-caps 07/17/21 01/31/22 varicella-zoster glycoE vacc-AS01B 50 mcg IM ONCE #1 ea 07/17/21 01/31/22 adj(PF) 50 mcg/0.5 mL IM susp, kit (Shingrix (PF)) lancets (Universal BiosensorsTouch UltraSoft #100 ea 07/21/21 01/31/22 Lancets) tramadol 50 mg tablet See Rx Instructions PO HS PRN pain 08/04/21 01/31/22 #35 tabs hydrocodone 5 mg-acetaminophen 325 1 tab PO Q8H PRN pain #9 tabs 09/29/21 01/31/22 mg tablet cyclobenzaprine 5 mg tablet 5 mg PO TID PRN muscle spasm #30 10/02/21 01/31/22 tabs gabapentin 100 mg capsule 100 mg PO TID #90 caps 10/02/21 01/31/22 walker #1 ea 10/02/21 01/31/22 doxycycline monohydrate 100 mg 100 mg PO BID #20 caps 01/31/22 capsule Previous Rx's Medication Instructions Recorded blood-glucose meter ([employer]uch ##1 01/17/18 Ultra2 Meter kit) clopidogrel 75 mg tablet (Plavix) 75 mg PO DAILY #90 tab-caps 06/29/21 pioglitazone 15 mg tablet 15 mg PO DAILY #90 tab-caps 07/10/21 rosuvastatin 40 mg tablet 40 mg PO DAILY #90 tabs 07/10/21 blood sugar diagnostic #100 ea 07/17/21 glimepiride 4 mg tablet 6 mg PO DAILY #90 tab-caps 07/17/21 varicella-zoster glycoE vacc-AS01B 50 mcg IM ONCE #1 ea 07/17/21 adj(PF) 50 mcg/0.5 mL IM susp, kit (Shingrix (PF)) lancets (OneTouch UltraSoft #100 ea 07/21/21 Lancets) tramadol 50 mg tablet See Rx Instructions PO HS PRN pain 08/04/21 #35 tabs hydrocodone 5 mg-acetaminophen 325 1 tab PO Q8H PRN pain #9 tabs 09/29/21 mg tablet cyclobenzaprine 5 mg tablet 5 mg PO TID PRN muscle spasm #30 10/02/21 tabs gabapentin 100 mg capsule 100 mg PO TID #90 caps 10/02/21 walker #1 ea 10/02/21 doxycycline monohydrate 100 mg 100 mg PO BID #20 caps 01/31/22 capsule Allergies Allergy/AdvReac Type Severity Reaction Status Date / Time Penicillins Allergy Unknown unknown Verified 01/31/22 10:02 metformin AdvReac Unknown Gas Verified 01/31/22 10:02 sitagliptin phosphate AdvReac Unknown Knee Pain Verified 01/31/22 10:02 [From Richardarnel] General Stated Complaint: RespSymp GRAY: 3 Review of Systems Constitutional Constitutional: Reports fatigue, Reports fever(s) (Subjective), Denies headache(s) and Reports weakness (Generalized) ENT Ears, Nose, Mouth, and Throat: Denies headache(s) and Denies neck pain Cardiovascular Cardiovascular: Denies chest pain and Denies dyspnea Respiratory Respiratory: Reports cough and Denies dyspnea Gastrointestinal Gastrointestinal: Denies abdominal pain, Reports nausea and Reports vomiting Genitourinary Genitourinary: Denies dysuria Musculoskeletal Musculoskeletal: Denies back pain and Denies neck pain Integumentary/Breasts Skin/Breast: Denies rash Neurologic Neurologic: Denies headache(s) and Reports weakness (Generalized) Endocrine Endocrine: Reports fatigue Hematologic/Lymphatic Hematologic/Lymphatic: Reports easy bleeding and Reports easy bruising PFSH All Active Problems (Updated 01/31/22 @ 12:00 by BEATA Verma) Cough (Acute) Hyperglycemia (Acute) Macular pucker (Acute 11/01/21) Radiculopathy due to disorder of intervertebral disc of lumbar spine (Acute) Type 2 diabetes mellitus with diabetic neuropathy, unspecified (Acute) 03/13/21 Early loss of protective sensation of both feet Ingrowing nail (Acute) Varicose veins of bilateral lower extremities with other complications (Acute) Paronychia of finger of right hand (Acute) Low back pain (Acute) Hyperkeratosis (Acute) 02/19/19-Edinson Jackson DPM Onychomycosis (Acute) Edinson Jackson DPM. Recurrent UTI (urinary tract infection) (Acute) Herpes zoster (Acute 11/22/17) Rectal hemorrhage (Acute 11/22/17) Urinary incontinence (Chronic 11/22/17) Type 2 diabetes mellitus with complication (Chronic 11/22/17) Stenosis of carotid artery (Chronic 11/22/17) Right knee pain (Chronic 11/22/17) Retinal edema (Chronic 11/22/17) Retinal detachment (Chronic 11/22/17) Psychomotor deficit (Chronic 11/22/17) Periodic limb movement disorder (Chronic 11/22/17) Lumbar radiculopathy (Chronic 11/22/17) Insomnia (Chronic 11/22/17) Hypothyroidism (Chronic 11/22/17) Hyperlipidemia (Chronic 11/22/17) Generalized osteoarthritis of multiple sites (Chronic 11/22/17) Gait disturbance (Chronic 11/22/17) Fatigue (Chronic 11/22/17) Essential hypertension (Chronic 11/22/17) Eczema (Chronic 11/22/17) Dysphagia (Acute 11/22/17) Cerebrovascular accident (CVA) (Acute 11/22/17) 2010 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 Osteoporosis Father , CHF at age 89. Congestive heart failure Brother Pacemaker Maternal Grandmother Essential hypertension Social History Smoking/Tobacco Use Status: Current-Occasional Tobacco Type: cigarettes Quit status: considering quitting Smoking risk assessment performed?: Yes Alcohol Intake: former Drug use: Never Substance use type: does not use Adopted: No Household members: family Housing: house Number of Children: 3 Communication Needs: None Do you need help understanding health information?: Rarely Pets and animals: Yes Pets and animals: dog(s) Sexually active: No Current gender identity: female What is your relationship status?: How often do you talk on the phone with friends or family?: twice per week How often do you get together with friends or relatives?: decline to answer How often do you attend moravian or restorationist services?: decline to answer Do you belong to any clubs or organized social groups?: decline to answer Panel score (0-1 are the most socially isolated patients): 0 Duration: < 15 minutes/day Frequency: 3-4 times per week Samantha/Sabianist: Other Special samantha needs: Yes Seatbelt use: always Helmet use: No Drive intox or ride w/intox stage driver: No Working smoke detector in home: Yes Fire extinguisher in home: Yes Carbon monox detector in home: No Do you feel safe at home: Yes Do you feel safe in your relationship?: Yes Exam Const General: cooperative, healthy appearing, comfortable and no acute distress Orientation: alert and awake HENSD Head: normal to inspection, normocephalic and atraumatic General nose exam: nasal discharge clear Face and sinus: normal facial exam Mouth: moist mucous membranes Throat: posterior oropharynx normal Eyes Conjunctivae: conjunctivae normal Neck Neck: normal visual inspection, full ROM, no meningeal signs, trachea midline and supple Resp Effort & Inspection: normal respiratory effort, able to speak in complete sentences and cough Auscultation: diminished lung sounds bilaterally in the lower lung [place] Cardio Rate: regular rate Rhythm: regular rhythm GI Palpation: soft and nontender Skin General skin exam: no rashes or lesions noted Neuro General: patient alert, patient awake, moves all extremities and no focal motor deficits Cognition: normal cognition Speech: speech normal Gait: normal gait Motor: muscle tone normal throughout Sensory Exam: no sensory deficits noted Extrem General: normal to inspection, full ROM, capillary refill normal, no pedal edema and no calf tenderness Psych Appearance: grossly normal Mental Status: mental status grossly normal Course Vital Signs Vital signs: Vital Signs Temperature 36.7 C 01/31/22 09:56 Pulse 81 01/31/22 09:56 Blood Pressure 152/94 H 01/31/22 09:56 Pulse Oximetry 94 01/31/22 09:56 Temperature 36.7 C 01/31/22 09:56 Temperature Source Temporal Artery Scan 01/31/22 09:56 Pulse 81 01/31/22 09:56 Respiratory Effort 01/31/22 09:58 Respiratory Depth Normal 01/31/22 09:58 Blood Pressure 152/94 H 01/31/22 09:56 Blood Pressure Position Sitting 01/31/22 09:56 Pulse Oximetry 94 01/31/22 09:56 Oxygen Delivery Method Room Air 01/31/22 09:56 Oxygen Flow Rate 0 01/31/22 09:56 Pain Level 0 01/31/22 09:56 Lab/Test Results Lab/Test Results: Laboratory Tests Range/Units 01/31/22 01/31/22 01/31/22 10:24 10:24 10:24 WBC (4.4-10.8) 10^3/uL 5.97 RBC (3.93-5.22) 10^6/uL 4.78 Hgb (11.2-15.7) g/dL 13.9 Hct (36.0-46.0) % 43.1 MCV (80-95) fL 90 MCH (27.0-33.0) pg 29.1 MCHC (32.0-36.0) % 32.3 RDW (11.7-14.6) % 13.4 Plt Count (130-400) 10^3/uL 238 MPV (8.0-11.0) fL 9.3 Immature Gran % 0.3 Neutrophils % 62.6 Lymphocytes % 19.6 Monocytes % 11.6 Eosinophils % 5.2 Basophils % 0.7 Nucleated RBC % (0.0-0.3) % 0.0 Absolute Neutrophils (1.2-6.7) 10^3/uL 3.74 Absolute Lymphocytes (1.2-3.4) 10^3/uL 1.17 L Absolute Monocytes (0.1-0.8) 10^3/uL 0.69 Absolute Eosinophils (0.0-0.7) 10^3/uL 0.31 Absolute Basophils (0.0-0.2) 10^3/uL 0.04 Sodium (136-145) mmol/L 139 Potassium (3.5-5.1) mmol/L 4.1 Chloride (98-107) mmol/L 103 Carbon Dioxide (21.0-32.0) mmol/L 32.1 H Anion Gap (3-11) mmol/L 3.9 BUN (7-18) mg/dL 18 Creatinine (0.55-1.02) mg/dL 1.0 Est GFR (CKD-EPI 2020) (mL/min/1.73m2) 57.66 Glucose (74-106) mg/dL 394 H Calcium (8.5-10.1) mg/dL 9.7 Total Bilirubin (0.2-1.0) mg/dL 0.3 AST (15-37) U/L 9 L ALT (14-59) U/L 20 Alkaline Phosphatase (46-116) U/L 126 H Total Protein (6.4-8.2) g/dL 7.3 Albumin (3.4-5.0) g/dL 3.7 COVID-19 Source Nasopharynx
[2022-01-31] MEDS: Glimepiride 2 MG TAB 6 MG PO (11:39)
[2022-01-31 11:43] VITALS: BP 149/98; PULSE 81; RESP 20; TEMP 36.6; O2SAT 95
[2022-01-31 12:28] VITALS: BP 144/58; PULSE 83; RESP 20; O2SAT 96
== END 2022-01-31 12:29 | disposition home or self-care (01) ==
PROVIDERS: Emergency Provider Physician Assistant; PCP Family Medicine
DX: R05.9 Cough, unspecified (principal); E11.65 Type 2 diabetes mellitus with hyperglycemia; I10 Essential (primary) hypertension; F17.210 Nicotine dependence, cigarettes, uncomplicated; Z20.822 Contact with and (suspected) exposure to COVID-19; Z79.84 Long term (current) use of oral hypoglycemic drugs
CPT/HCPCS: 36415; 80053; 87635; 96360; 99284; 71045; 85025